=== PATIENT | female | born 1960 | race Asian ===

== ENCOUNTER 2021-05-29 20:33 | Emergency (ER) | payer OTHER, SELFPAY ==
[~2021-05-29] VITALS: Ht 157.5 cm; Wt 63.5 kg
[2021-05-29 20:38] VITALS: BP_SYST 140
--- NOTE | 2021-05-29 21:30 | NUR ---
PT [facility]IA [facility] FOR COMPLAINTS OF ALOC. PT IS A DIABETIC AND SHE WAS FOUND BY FAMILY UNRESPONSIVE ON THE FLOOR. UPON ARRIVAL OF EMS, BG WAS 32. PT WAS GIVEN D10 AND SHE PERKED UP AGAIN AND A RECHECK SHOWED A BG OF 335 PER MEDICS. PT IS A&OX4 NOW AND ACTING APPROPRIATLY. SHE HAS -PAIN. SHE STATED THAT SHE MISSED A MEAL AND TOOK ALL HER REGULAR MEDS BEFORE THE INCIDENT
[2021-05-29] MEDS ORDERED: D5/0.45 NS 1,000 ML IV ONE (21:45)
--- NOTE | 2021-05-29 22:00 | NUR ---
LAB AT BEDSIDE.
[2021-05-29 22:30] LABS: BASOPHILS % (AUTO) 0.3 % (0.0-2.0); EOSINOPHILS % (AUTO) 0.1 % (0.0-4.0); HEMATOCRIT 36.7 % (36-48); LYMPHOCYTES # (AUTO) 1.4 K/uL (1.0-5.5); LYMPHOCYTES % (AUTO) 12.2 % (20.5-51.5); MEAN CORPUSCULAR HEMOGLOBIN 29 pg (27-31); MEAN CORPUSCULAR HGB CONC 33 % (32-36); MEAN CORPUSCULAR VOLUME 88 fL (79.0-98.0); MONOCYTES # (AUTO) 0.6 K/uL (0.0-1.0); MONOCYTES % (AUTO) 5.4 % (1.7-9.3); NEUTROPHILS # (AUTO) 9.2 K/uL (1.8-7.7); PLATELET COUNT (AUTO) 224 K/uL (130-430); RED BLOOD CELL COUNT(AUTO) 4.16 MIL/uL (4.2-6.2); RED CELL DISTRIBUTION WIDTH 13.2 % (9.0-15.0); WHITE BLOOD COUNT (AUTO) 11.3 K/uL (4.8-10.8)
--- NOTE | 2021-05-29 22:31 | NUR ---
PT IS RESTING IN BED COMFORTABLY VSS
[2021-05-29 23:11] LABS: CALCIUM 8.8 mg/dL (8.4-11.0); CREATININE 1.06 mg/dL (0.55-1.30); POTASSIUM 3.9 mmol/L (3.5-5.1)
[2021-05-29] MEDS ORDERED: cloNIDine HCL 0.1 MG TABLET PO ONE (23:15)
[2021-05-29 23:17] LABS: ALBUMIN 3.5 g/dL (3.4-4.8); TOTAL BILIRUBIN 0.5 mg/dL (0.0-1.0)
[2021-05-29 23:19] LABS: PROTHROMBIN TIME 10.7 SECS (9.5-12.5)
--- NOTE | 2021-05-29 23:29 | NUR ---
pt has elevated bp at 190/84. Dr. PACHECO AWARE. ORDERED CLONOPINE TO LOWER BP
--- NOTE | 2021-05-30 00:20 | NUR ---
PTs BP DECREASED TO 140s, WILL CONTINUE MONITORING
--- NOTE | 2021-05-30 01:30 | NUR ---
PT SLEEPING COMFORTABLY IN BED
--- NOTE | 2021-05-30 04:20 | NUR ---
PT GIVEN APPLE JUICE PER THE REQUEST OF DR PACHECO
--- NOTE | 2021-05-30 04:30 | NUR ---
BG IS 128
--- NOTE | 2021-05-30 04:52 | NUR ---
PT WILL BE TRANSFERED TO [facility]. NO UPDATES OF YET
--- NOTE | 2021-05-30 06:15 | NUR ---
Patient to be transferred to [facility] ER.Is being transferred due to higher level of care. Receiving facility has accepting physician and available space. ER physician has signed transfer form. Patient or responsible democrat has agreed to transfer and signed form. Patient belongings inventoried and will be sent with patient. Copy of nursing notes, lab reports, EKG, Physicians Orders and X-rays to be sent with patient. Report called to AMP at receiving facility. Receiving physician is DR. JOEL. [facility] service has been called for transfer. ETA is 15.
[2021-05-30 07:01] VITALS: BP_SYST 156
== END 2021-05-30 07:01 | disposition short-term general hospital (02) ==
LOC: SED 20:33
DX: R41.82 Altered mental status, unspecified (principal); E11.649 Type 2 diabetes mellitus with hypoglycemia without coma; R94.31 Abnormal electrocardiogram [ECG] [EKG]; Z20.822 Contact with and (suspected) exposure to COVID-19
CPT/HCPCS: 36415; 71045; 80053; 82962; 83605; 84484; 85025; 85610; 85730; 87040; 87426; 93005; 96360; 96361; 99285; J7030

== ENCOUNTER 2021-09-20 15:25 | Emergency (ER) | payer OTHER, SELFPAY ==
[~2021-09-20] VITALS: Ht 157.5 cm; Wt 45.4 kg
[2021-09-20 15:25] VITALS: BP_SYST 164; BP_SYST 201
--- NOTE | 2021-09-20 15:25 | NUR ---
BROUGHT IN BY [facility], PLACED IN HALLWAY BED. AWAITING NURSE ASSIGNMENT
--- NOTE | 2021-09-20 16:16 | NUR ---
SPOKE WITH DAUGHTER DRU PADRON AT [phone].
--- NOTE | 2021-09-20 16:31 | NUR ---
PT GIVEN FOOD TO EAT
--- NOTE | 2021-09-20 17:47 | NUR ---
61 years old female biba from home with hypoglycemia, D50 and food given tolerated well, will continue to monitor.
--- NOTE | 2021-09-20 18:34 | NUR ---
patient awake denies pain, non compliant with home medications.
--- NOTE | 2021-09-20 19:09 | NUR ---
report endorsed to nurse villareal all questions answered.
--- NOTE | 2021-09-20 19:11 | NUR ---
RECEIVED REPORT FROM BILLIE MCKINNON
--- NOTE | 2021-09-20 19:31 | NUR ---
CURRENTLY BS 239, PEES AWARE. PT DENIES ANY OTHER PROBLEMS. A/O X4 . ON BEDSIDE MONITOR.
--- NOTE | 2021-09-20 20:00 | NUR ---
SPOKE TO PT'S DAUGHTER DRU, ADVISED SHE IS DISCHARGED AND WILL BE WAITING FOR HER IN THE WAITING ROOM. DRU IS COMING TO [facility] TO PICK HER MOM UP
[2021-09-20 20:06] VITALS: BP_SYST 163
--- NOTE | 2021-09-20 20:07 | NUR ---
Patient given written and verbal discharge instructions and verbalizes understanding. ER MD discussed with patient the results and treatment provided. Patient in stable condition. ID arm band removed. IV catheter removed intact and dressing applied, no active bleeding. Patient educated on pain management and to follow up with PMD. Pain Scale 0. Opportunity for questions provided and answered. Medication side effect fact sheet provided.
== END 2021-09-20 20:06 | disposition home or self-care (01) ==
LOC: SED 15:25
DX: E11.649 Type 2 diabetes mellitus with hypoglycemia without coma (principal); I10 Essential (primary) hypertension
CPT/HCPCS: 82962; 99285

== ENCOUNTER 2021-12-22 08:37 | Inpatient (IN) | payer OTHER ==
[~2021-12-22] VITALS: Ht 162.6 cm; Wt 59.0 kg
[2021-12-22 08:42] VITALS: BP_SYST 211
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
--- NOTE | 2021-12-22 08:50 | NUR ---
DR Bin [address] AT BEDSIDE EXAINING PT.
[2021-12-22] MEDS ORDERED: hydrALAZINE HCL 20 MG/ML VIAL ONE (08:59)
[2021-12-22] MEDS ORDERED: ONDANSETRON HCL 4 MG/2 ML VIAL IVP ONE (09:00)
[2021-12-22] MEDS ORDERED: MORPHINE 4 MG INJ. 4 MG/ML VIAL IVP ONE (09:00)
[2021-12-22] MEDS ORDERED: NITROGLYCERIN LINGUAL 400 mCg/SPRAY ONE (09:02)
--- NOTE | 2021-12-22 09:15 | NUR ---
ASSISTED PT TO THE BATHROOM, PROVIDED A SPECIMEN CUP, URINE SAMPLE TAKEN AND SENT TO LAB FOR TEST.
--- NOTE | 2021-12-22 09:21 | NUR ---
# 20 gauge angiocath placed to right a/c . Use of aseptic technique. Opsite placed over site. Blood return noted. Flushed with 10 cc of normal saline. No evidence of infiltration noted. Patient tolerated well.
--- NOTE | 2021-12-22 09:25 | NUR ---
surveillance officer at bedside taking down notes.
--- NOTE | 2021-12-22 09:28 | NUR ---
TRANSPORTED TO CT SCAN DEPT.
[2021-12-22] MEDS ORDERED: NITROGLYCERIN LINGUAL 400 mCg/SPRAY TL ONE (09:30)
[2021-12-22] MEDS ORDERED: hydrALAZINE HCL 20 MG/ML VIAL IVP ONE (09:30)
--- NOTE | 2021-12-22 09:40 | NUR ---
BROUGHT PT BACK TO E.R. 3.
[2021-12-22 10:05] LABS: BASOPHILS % (AUTO) 0.7 % (0.0-2.0); EOSINOPHILS # (AUTO) 0.1 K/uL (0.0-0.4); EOSINOPHILS % (AUTO) 1.5 % (0.0-4.0); HEMATOCRIT 37.1 % (36-48); HEMOGLOBIN 12.1 g/dL (12.0-16.0); LYMPHOCYTES % (AUTO) 17.7 % (20.5-51.5); MEAN CORPUSCULAR HEMOGLOBIN 29 pg (27-31); MEAN CORPUSCULAR HGB CONC 33 % (32-36); MEAN CORPUSCULAR VOLUME 87 fL (79.0-98.0); MONOCYTES # (AUTO) 0.3 K/uL (0.0-1.0); MONOCYTES % (AUTO) 5.6 % (1.7-9.3); NEUTROPHILS # (AUTO) 4.2 K/uL (1.8-7.7); NEUTROPHILS % (AUTO) 74.5 % (40.0-70.0); PLATELET COUNT (AUTO) 270 K/uL (130-430); RED BLOOD CELL COUNT(AUTO) 4.24 MIL/uL (4.2-6.2); RED CELL DISTRIBUTION WIDTH 13.2 % (9.0-15.0); WHITE BLOOD COUNT (AUTO) 5.6 K/uL (4.8-10.8)
[2021-12-22 10:16] LABS: ANION GAP 9 (5-15); CALCIUM 9.4 mg/dL (8.4-11.0); CHLORIDE 102 mmol/L (98-107); CREATININE 1.57 mg/dL (0.55-1.30); GLUCOSE 170 mg/dL (70-99); POTASSIUM 4.5 mmol/L (3.5-5.1); SODIUM SERUM 137 mmol/L (136-145); UREA NITROGEN, BLOOD 42 mg/dL (8-21)
[2021-12-22 10:20] LABS: INR 0.9 (0.8-1.2); PROTHROMBIN TIME 9.8 SECS (9.5-12.5)
[2021-12-22 10:24] LABS: ALANINE AMINOTRANSFERASE 35 U/L (12-78); ALBUMIN 3.8 g/dL (3.4-4.8); ASPARTATE AMINOTRANSFERASE 30 U/L (10-37); TOTAL BILIRUBIN 0.1 mg/dL (0.0-1.0)
[2021-12-22 10:40] LABS: ACETAMINOPHEN < 1 ug/mL (1-30); ALCOHOL, BLOOD < 3 mg/dL (<10); GFR AFRICAN AMERICAN 43 mL/min (>90)
[2021-12-22] MEDS ORDERED: NITROGLYCERIN 1 INCH (GM) OINT. TP ONE (10:45)
[2021-12-22] MEDS ORDERED: ASPIRIN 325 MG TABLET (ECOTRIN) PO ONE (10:45)
[2021-12-22 10:46] LABS: BARBITURATE, URINE NEGATIVE (NEG <=200); BENZODIAZEPINE, URINE NEGATIVE (NEG <=150); CANNABINOID, URINE NEGATIVE (NEG <=50); COCAINE, URINE NEGATIVE (NEG <=150); METHAMPHETAMINES SCREEN,URINE NEGATIVE (NEG <=500); OPIATE, URINE NEGATIVE (NEG <=100); PHENCYCLIDINE SCREEN,URINE NEGATIVE (NEG <=25); UR TRICYCLIC ANTIDEPRESSANTS NEGATIVE (NEG <=300); URINE AMPHETAMINE NEGATIVE (NEG <=500); URINE METHADONE NEGATIVE (NEG <=200); URINE OXYCODONE SCREEN NEGATIVE (NEG <=100); URINE PROPOXYPHENE SCREEN NEGATIVE (NEG <=300)
[2021-12-22] MEDS ORDERED: ENOXAPARIN SODIUM 60 MG/0.6 ML SYRINGE SUBCUT ONE (13:15)
--- NOTE | 2021-12-22 13:39 | NUR ---
Admit bed requested Patient will be admitted to care of . Admitted to tele unit. Diagnosis hypertensive urgency, syncope Inpatient (Yes or No) yes Observation (Yes or No) no Orientation concerns or request close to nursing station (Yes or No) no Covid Status pending On vent or bipap no Isolation requirements no Needs a sitter no From Home (Yes or if No enter name of facility) home Requires Dialysis (Yes or No) no Med Rec Completed (Yes of No) no
[2021-12-22 16:30] VITALS: BP_SYST 164
--- NOTE | 2021-12-22 16:30 | NUR ---
PT RECEIVED FROM E.RFarrukh AAOX4. TELE PLACED AND READING NSR. PT BEING TREATED FOR HTN SBP 164. WILL REQUEST ORDER FOR HTN MEDCATION. RESP E/U. LUNG SOUNDS CTA. ON R/A. NO COUGH OR SOB. ABDOMEN SOFT, NONTENDER, NONDISTENDED. BOWEL SOUNDS ACTIVE X4 QUADS. DENIES N/V/D/C. IV CATH TO RAC 20 S/L. SITE WNL. SHELBY PAIN, H/A AND DIZZINESS. VOID FREELY. PT ORIENTED TO ROOM AND CALL LIGHT.
--- NOTE | 2021-12-22 16:30 | NUR ---
TRANSPORTED VIA GURNEY TO ROOM 129-A, REPORT GIVEN TO INO RICH.
[2021-12-22 16:34] LABS: BILIRUBIN,URINE NEGATIVE (NEGATIVE); BLOOD, URINE NEGATIVE (NEGATIVE); CLARITY/URINE CLEAR (CLEAR); COLOR,URINE STRAW (YELLOW); GLUCOSE,URINE TRACE (NEGATIVE); KETONES,URINE NEGATIVE (NEGATIVE); LEUKOCYTE ESTERASE ,URINE NEGATIVE (NEGATIVE); NITRITE, URINE NEGATIVE (NEGATIVE); PH,URINE 6.5 (5.0-8.0); PROTEIN URINE 2+ (NEGATIVE); UROBILINOGEN,URINE 0.2 (0.2-1.0)
[2021-12-22 16:35] LABS: BACTERIA,URINE None Seen /HPF (None Seen); MUCUS,URINE None Seen /LPF (None Seen); RBC,URINE NONE SEEN /HPF (0-3); WBC,URINE 0-3 /HPF (0-3)
--- NOTE | 2021-12-22 16:35 | NUR ---
CONSULTATION PAGED/CALLED Reason for Consultation: [] HYPERTENSION Person Who was Notified: [] FAIZAN Consulting Physician: [] DR WADDELL Terrazzo Installer Specialty: [] CARDIO Ordering Physician: [] DR REY
--- NOTE | 2021-12-22 16:39 | NUR ---
CONSULTATION PAGED/CALLED Reason for Consultation: [] SYNCOPE Person Who was Notified: [] DR DIANA Consulting Physician: [] DR David DIANA Jointer Operator Specialty: [] NEUROLOGY Ordering Physician: [] DR REY
[2021-12-22] MEDS ORDERED: LIP80 PO (18:20)
[2021-12-22] MEDS ORDERED: FERR-69 PO (18:20)
[2021-12-22] MEDS ORDERED: DOCU-144 PO (18:20)
[2021-12-22] MEDS ORDERED: METO25TA6 PO (18:20)
[2021-12-22] MEDS ORDERED: METF-518 PO (18:20)
[2021-12-22] MEDS ORDERED: LOSA50TA3 PO (18:20)
--- NOTE | 2021-12-22 18:29 | NUR ---
DR. REY MADE AWARE PT'S HOME MEDS HAVE BEEN RECONCILED, ALSO PT HAS SBP 164 AND NO S/P MEDS FOR COVERAGE. RECEIVED ORDER FOR CLONIDINE 0.1 MG PO Q 6 HOURS PRN FOR SBP <160mmHG. ORDER CARRIED OUT. PT MADE AWARE.
[2021-12-22] MEDS ORDERED: cloNIDine HCL 0.1 MG TABLET PO PRN (18:30)
--- NOTE | 2021-12-22 18:42 | NUR ---
CATPRES 0.1MG PO PRN GIVEN FOR SPB 164. PT DENIES H/A AND DIZZINESS. DENIES PAIN. CALL LIGHT WITHIN REACH.
[2021-12-22 19:33] VITALS: BP_SYST 164
[2021-12-22 19:50] VITALS: BP_SYST 128
--- NOTE | 2021-12-22 19:50 | NUR ---
ENDORSED CARE TO INO DONNELLY. ALL QUESTIONS AND CONCERNS ADDRESSED.
--- NOTE | 2021-12-22 20:00 | NUR ---
Report received from Sophie Jacinto. Pt is awake alert and oriented x4, vs stable, denies any pain, NSR on tele, no acute distress noted. Bed to lowest position, side rails up x2, bed is locked and call light within reach. Oriented pt to room and unit routine. Assuming care for pt.
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
[2021-12-22 23:43] VITALS: BP_SYST 109
--- NOTE | 2021-12-23 | NUR ---
BS 133
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
--- NOTE | 2021-12-23 05:45 | NUR ---
bs 151
--- NOTE | 2021-12-23 06:38 | NUR ---
Pt stable, no acute distress. Daughter at bedside.
--- NOTE | 2021-12-23 07:30 | NUR ---
RECEIVED PT FROM INO DONNELLY. ASSUMED ALL CARE. B/P WNL. DENIES H/A AND DIZZINESS, DENIES PAIN. RESP E/U. NO DISTRESS NOTED. IV CATH TO BO FLUSHED, PATENT, WNL, CDI. CALL LIGHT WITHIN REACH. DAUGHTER AT BEDSIDE.
[2021-12-23 08:00] VITALS: BP_SYST 120
--- NOTE | 2021-12-23 09:26 | NUR ---
Nutrition Note RD was completing nutrition screening process this morning and noted BMI: 10 kg/m2 -- unsure of reliability. RD viewed pt's wt Hx during this admission and previous ER visits x2 (09/20/21 and 05/29/21). Based on EMR review, triage nursing assessment 12/22/21 0842, pt's stated wt was 130#/58.9 kg. Most recent documented wt of 58#/26.3 kg/m2 from MST/ICU nursing assessment 12/22/21 [address] adjusted wt to 130#/58.9 kg/m2 to better reflect pt's CBW.
[2021-12-23] MEDS: METOPROLOL TARTRATE 25 MG TABLET PO SCH ×2 (09:45→21:13)
[2021-12-23] MEDS: LOSARTAN POTASSIUM 50 MG TABLET (COZAAR) PO SCH ×2 (09:46→21:14)
--- NOTE | 2021-12-23 10:20 | NUR ---
SCHEDULED MEDS GIVEN AND TOLERATED WELL. PT DENIES H/A AND DIZZINESS, DENIES PAIN. DAUGHTER AT BEDSIDE. CALL LIGHT WITHIN REACH.
[2021-12-23 12:00] VITALS: BP_SYST 133
[2021-12-23] MEDS ORDERED: HYDROcodone/ACETAMIN 5-325 MG TAB (NORCO/ VICODIN) PO PRN (13:00)
[2021-12-23] MEDS ORDERED: NALOXONE HCL 0.4 MG/ML AMP (NARCAN) IVP PRN ×2 (13:00)
[2021-12-23] MEDS ORDERED: ACETAMINOPHEN 325 MG TABLET PO PRN (13:00)
[2021-12-23] MEDS ORDERED: ONDANSETRON HCL 4 MG/2 ML VIAL IVP PRN (13:00)
[2021-12-23] MEDS ORDERED: LORazepam 2 MG/ML VIAL IVP PRN (13:00)
[2021-12-23] MEDS ORDERED: HYDROcodone/ACETAMIN 10-325 MG TAB PO PRN (13:00)
[2021-12-23] MEDS: NORMAL SALINE 5 ML DISP.SYRIN IVF SCH ×2 (13:38→21:14)
[2021-12-23] MEDS ORDERED: NORMAL SALINE 5 ML DISP.SYRIN IVF SCH (14:00)
[2021-12-23 16:30] VITALS: BP_SYST 143
--- NOTE | 2021-12-23 16:41 | NUR ---
CM: faxed fs, er notes to [facility] de[facility].
[2021-12-23] MEDS: metFORMIN HCL 500 MG TABLET PO SCH (17:23)
[2021-12-23] MEDS: INSULIN REGULAR, HUMAN 100 UNITS/ML, 10 ML VIAL (humuLIN R) SUBCUT PRN (17:29)
--- NOTE | 2021-12-23 17:37 | NUR ---
BS 161, 2 UNITS REG INSULIN GIVEN SQ TO TANA. SCHEDULED MED GIVEN. DENIES H/A AND DIZZINESS. CALL LIGHT WITHIN REACH.
--- NOTE | 2021-12-23 19:40 | NUR ---
ENDORSED ALL CARE TO JOZEF ALVARADO. ALL QUESTIONS AND CONCERNS ADDRESSED.
[2021-12-23 20:00] VITALS: BP_SYST 154
[2021-12-23] MEDS: ATORVASTATIN 20 MG TABLET PO SCH (21:13)
[2021-12-24] VITALS (9 sets, daily range): BP systolic 138–212
[2021-12-24] MEDS: NORMAL SALINE 5 ML DISP.SYRIN IVF SCH ×3 (06:25→23:10)
[2021-12-24 06:30] LABS: BASOPHILS % (AUTO) 0.8 % (0.0-2.0); EOSINOPHILS # (AUTO) 0.1 K/uL (0.0-0.4); HEMATOCRIT 30.2 % (36-48); LYMPHOCYTES # (AUTO) 1.8 K/uL (1.0-5.5); MEAN CORPUSCULAR HEMOGLOBIN 29 pg (27-31); MEAN CORPUSCULAR HGB CONC 33 % (32-36); MEAN CORPUSCULAR VOLUME 87 fL (79.0-98.0); MONOCYTES # (AUTO) 0.6 K/uL (0.0-1.0); NEUTROPHILS # (AUTO) 3.4 K/uL (1.8-7.7); NEUTROPHILS % (AUTO) 57.2 % (40.0-70.0); PLATELET COUNT (AUTO) 238 K/uL (130-430); RED BLOOD CELL COUNT(AUTO) 3.46 MIL/uL (4.2-6.2); RED CELL DISTRIBUTION WIDTH 12.9 % (9.0-15.0)
--- NOTE | 2021-12-24 07:05 | NUR ---
CLOSING NOTE PT IS SLEEPING IN BED, DAUGHTER REMAINED BEDSIDE ALL NIGHT. NO APPARENT DISTRESS NOTED AT THIS TIME. BED IS IN LOWEST POSITION WITH SAFETY PRECAUTIONS IN PLACE. CALL LIGHT IS WITHIN REACH
[2021-12-24 07:58] LABS: CALCIUM 8.1 mg/dL (8.4-11.0); CREATININE 1.88 mg/dL (0.55-1.30); PHOSPHORUS 4.5 mg/dL (2.7-4.5); POTASSIUM 4.3 mmol/L (3.5-5.1)
[2021-12-24] MEDS: DOCUSATE SODIUM 100 MG CAPSULE PO SCH (08:07)
[2021-12-24] MEDS: LOSARTAN POTASSIUM 50 MG TABLET (COZAAR) PO SCH (08:09)
[2021-12-24] MEDS: METOPROLOL TARTRATE 25 MG TABLET PO SCH ×2 (08:10→20:41)
[2021-12-24] MEDS ORDERED: FERROUS SULFATE 325 MG TABLET.DR PO SCH (09:00)
[2021-12-24] MEDS ORDERED: LOSARTAN POTASSIUM 50 MG TABLET (COZAAR) PO ONE (10:15)
--- NOTE | 2021-12-24 10:34 | NUR ---
PT GIVEN ANOTHER DOSE OF [address] WADDELL. BP WAS 176/68.
[2021-12-24] MEDS ORDERED: LOSA50TA3 PO (11:09)
[2021-12-24] MEDS: INSULIN REGULAR, HUMAN 100 UNITS/ML, 10 ML VIAL (humuLIN R) SUBCUT PRN (11:51)
--- NOTE | 2021-12-24 12:04 | NUR ---
DR MUNGUIA INFORMED OF C ORDER IF CLEARED BY NEURO. SAID HE WILL LOOK AT PT'S RECORDS AND WILL GET BACK TO ME.
[2021-12-24 12:38] LABS: FREE T4 (FREE THYROXINE) 1.5 ng/dl (0.8-1.5); THYROID STIMULATING HORMONE 0.25 uIu/mL (0.36-3.74)
--- NOTE | 2021-12-24 14:00 | NUR ---
DR MUNGUIA ( NEURO ) CLEARED PT TO GO HOME. PT TO SEE DR MUNGUIA IN ONE WEEK AFTER SEEING HER PCP.
--- NOTE | 2021-12-24 14:38 | NUR ---
PT'S BP CHECKED PRIOR TO DC HOME. BP WAS ELEVATED AT 193/102, 197/90 AND 197/89. HR IS ON THE LOW 70S. Addendum: 12/24/21 at 1440 by Hipolito Andersen RN PAGED DR REY TO INFORM MD OF PT'S BP.
--- NOTE | 2021-12-24 14:53 | NUR ---
DR REY MADE AWARE OF THE CURRENT BP OF PT WHICH ARE ELEVATED. NEW ORDERS RECEIVED AND CARRIED OUT.
[2021-12-24] MEDS ORDERED: METOPROLOL TARTRATE 25 MG TABLET PO ONE (15:00)
--- NOTE | 2021-12-24 16:44 | NUR ---
PT BP STILL ELEVATED, INFORMED DR WADDELL, NEW ORDERS RECEIVED AND CARRIED OUT. WILL KEEP PATIENT ONE MORE DAY PER MD.
[2021-12-24] MEDS ORDERED: hydrALAZINE HCL 25 MG TABLET PO ONE (17:00)
[2021-12-24] MEDS: metFORMIN HCL 500 MG TABLET PO SCH (17:07)
--- NOTE | 2021-12-24 18:46 | NUR ---
PT'S BP NOW AT 158/95. WILL CONT TO MONITOR. WILL ENDORSE TO NIGHT NURSE.
--- NOTE | 2021-12-24 19:30 | NUR ---
OPENING NOTE PT IS SITTING UP IN BED. NO APPARENT DISTRESS NOTED AT THIS TIME. BED IS IN LOWEST POSITION WITH SAFETY PRECAUTIONS IN PLACE. CALL LIGHT IS WITHIN REACH
[2021-12-24] MEDS: hydrALAZINE HCL 25 MG TABLET PO SCH (20:42)
[2021-12-24] MEDS: ATORVASTATIN 20 MG TABLET PO SCH (20:42)
--- NOTE | 2021-12-24 20:54 | NUR ---
PAGED PAGED DOCTOR WADDELL
--- NOTE | 2021-12-24 20:57 | NUR ---
SPOKE WITH PTS BP ELEVATED AT 206/107. PAGED DR WADDELL. [id number] MG HYDRALAZINE IV PUSH ONE TIME. READ BACK ORDER, CONFIRMED. WILL CONTINUE TO MONITOR PTS BP
[2021-12-24] MEDS ORDERED: hydrALAZINE HCL 20 MG/ML VIAL IVP ONE (21:00)
[2021-12-25] VITALS: BP_SYST 113
[2021-12-25] MEDS: NORMAL SALINE 5 ML DISP.SYRIN IVF SCH (05:34)
--- NOTE | 2021-12-25 06:56 | NUR ---
CLOSING NOTE PT IS SITING UP IN BED WITH DAUGHTER BEDSIDE. NO APPARENT DISTRESS NOTED AT THIS TIME. BED IS IN LOWEST POSITION WITH SAFETY PRECAUTIONS IN PLACE. CALL LIGHT IS WITHIN REACH.
[2021-12-25 08:51] LABS: BASOPHILS # (AUTO) 0.1 K/uL (0.0-0.2); BASOPHILS % (AUTO) 0.7 % (0.0-2.0); EOSINOPHILS # (AUTO) 0.2 K/uL (0.0-0.4); EOSINOPHILS % (AUTO) 2.3 % (0.0-4.0); HEMATOCRIT 34.2 % (36-48); HEMOGLOBIN 11.5 g/dL (12.0-16.0); LYMPHOCYTES % (AUTO) 26.4 % (20.5-51.5); MEAN CORPUSCULAR HEMOGLOBIN 29 pg (27-31); MEAN CORPUSCULAR HGB CONC 34 % (32-36); MEAN CORPUSCULAR VOLUME 87 fL (79.0-98.0); MONOCYTES # (AUTO) 0.6 K/uL (0.0-1.0); MONOCYTES % (AUTO) 7.4 % (1.7-9.3); NEUTROPHILS # (AUTO) 4.7 K/uL (1.8-7.7); NEUTROPHILS % (AUTO) 63.2 % (40.0-70.0); PLATELET COUNT (AUTO) 274 K/uL (130-430); RED BLOOD CELL COUNT(AUTO) 3.93 MIL/uL (4.2-6.2); RED CELL DISTRIBUTION WIDTH 12.9 % (9.0-15.0); WHITE BLOOD COUNT (AUTO) 7.5 K/uL (4.8-10.8)
[2021-12-25] MEDS ORDERED: LOSARTAN POTASSIUM 50 MG TABLET (COZAAR) PO SCH (09:00)
[2021-12-25 09:48] LABS: ALBUMIN 3.5 g/dL (3.4-4.8); CALCIUM 8.7 mg/dL (8.4-11.0); CREATININE 1.68 mg/dL (0.55-1.30); PHOSPHORUS 5.3 mg/dL (2.7-4.5); POTASSIUM 4.3 mmol/L (3.5-5.1); TOTAL BILIRUBIN 0.7 mg/dL (0.0-1.0)
[2021-12-25] MEDS ORDERED: PIOG30TA70 PO (09:51)
[2021-12-25] MEDS ORDERED: HYDR-4038 PO (09:51)
[2021-12-25] MEDS: METOPROLOL TARTRATE 25 MG TABLET PO SCH (10:16)
[2021-12-25] MEDS: hydrALAZINE HCL 25 MG TABLET PO SCH (10:17)
[2021-12-25] MEDS: DOCUSATE SODIUM 100 MG CAPSULE PO SCH (10:18)
--- NOTE | 2021-12-25 10:50 | NUR ---
INFORMED SLOPE RUNNER FLYNN THAT THE PATIENT IS OFF THE TELE MONITOR
--- NOTE | 2021-12-25 11:00 | NUR ---
Welder/Installer CHARLES Bach responded to a request for social work consult for "resources needed for financial hardship and disability". CHARLES Bach met with patient at bedside. Patient was sitting up in bed alert and orientated x4. Her 23 year old daughter was also present at bedside. CHARLES Bach completed introductions and reason for referral. Patient was open to contact. Patient shared a need for resources related to her 17 year old daughter who has been diagnosed with Autism. She also requested community resources for low income housing. The adult daughter also inquired into resources available for her and stated she was ADHD and "other things with her mind". The adult daughter's responses were observed to not be congruent with her age. POLICY VALUE CALCULATOR encouraged both patient and daughter to explore available resources at her college as well as utilizing [facility] and the community resource packet. POLICY VALUE CALCULATOR provided patient with the following resources -Community resources packet - [place] contact information - [employer] application info POLICY VALUE CALCULATOR will continue to be available as needed.
[2021-12-25 11:48] VITALS: BP_SYST 132
== END 2021-12-25 12:20 | disposition home or self-care (01) | DRG 305 ==
LOC: SED 08:37 → STU 13:37
PROVIDERS: ADMIT Preventive Medicine Preventive Medicine/Occupational Environmental Medicine; ATTEND Preventive Medicine Preventive Medicine/Occupational Environmental Medicine
PROC: 4A10X4Z Monitoring of Central Nervous Electrical Activity, External Approach (ICD-10-PCS; principal; 2021-12-24)
DX: I16.0 Hypertensive urgency (principal); N18.4 Chronic kidney disease, stage 4 (severe); E11.65 Type 2 diabetes mellitus with hyperglycemia; E78.00 Pure hypercholesterolemia, unspecified; E78.5 Hyperlipidemia, unspecified; E11.21 Type 2 diabetes mellitus with diabetic nephropathy; I12.9 Hypertensive chronic kidney disease with stage 1 through stage 4 chronic kidney disease, or unspecified chronic kidney disease; E11.22 Type 2 diabetes mellitus with diabetic chronic kidney disease; Z20.822 Contact with and (suspected) exposure to COVID-19; G44.309 Post-traumatic headache, unspecified, not intractable; Z79.84 Long term (current) use of oral hypoglycemic drugs; Z79.899 Other long term (current) drug therapy; Z83.3 Family history of diabetes mellitus
CPT/HCPCS: 36415; 70450-TC; 71045; 72125-TC; 76376; 80048; 80053; 80307; 81000; 82962; 83605; 83735; 84100; 84439; 84443; 84484; 85025; 85610-TC; 85730-TC; 93005; 93306; 93880; 95816; 96372; 96374; 96375; 99285; G0378; G0480; G0481; G0482; J0360; J1650; J1815; J2405

== ENCOUNTER 2022-01-08 13:57 | Emergency (ER) | payer OTHER ==
[~2022-01-08] VITALS: Ht 157.5 cm; Wt 59.4 kg
[~2022-01-08 13:57] MED LIST: DOCU-144 PO; FERR-69 PO; HYDR-4038 PO; LIP80 PO; LOSA50TA3 PO; METO25TA6 PO; PIOG30TA70 PO
[2022-01-08 14:10] VITALS: BP_SYST 148
--- NOTE | 2022-01-08 14:10 | NUR ---
Pt to bed 1 for evaluation. Report given to INO Posada who will assume care.
--- NOTE | 2022-01-08 14:15 | NUR ---
EKG performed at by Zoya Dodd. Physician given copy of EKG for review.
--- NOTE | 2022-01-08 14:17 | NUR ---
ER at bedside examining patient.
--- NOTE | 2022-01-08 14:25 | NUR ---
Pt to bed #1 coming from home after walking to the [employer] store [employer]. Pt states while on a walk she flet sob and blurred vision then she had a syncopal episode. States her that was with her caught her. Pt is A&Ox4. Skin intact. NKA. Has hx of HTN and DM. Accucheck done and results were 96. Connected pt to personnel monitor and VSS. No chest pain and no n/v. All neuro checks within normal limits. Negative stroke symptoms present. Bed in lowest position.
--- NOTE | 2022-01-08 14:30 | NUR ---
Patient transported to radiology via gurney, accompanied by Cash Office Worker.
--- NOTE | 2022-01-08 14:42 | NUR ---
Returned from radiology, back to [facility].
--- NOTE | 2022-01-08 15:10 | NUR ---
All cares assumed (INO Porter)
--- NOTE | 2022-01-08 15:15 | NUR ---
Patient calm and cooperative in no acute distress and or discomfort. Returned from CT scan, placed back onto monitor. Vitals stable.
[2022-01-08 15:18] LABS: BASOPHILS % (AUTO) 0.5 % (0.0-2.0); EOSINOPHILS # (AUTO) 0.1 K/uL (0.0-0.4); EOSINOPHILS % (AUTO) 1.1 % (0.0-4.0); HEMATOCRIT 30.7 % (36-48); HEMOGLOBIN 10.1 g/dL (12.0-16.0); LYMPHOCYTES # (AUTO) 1.4 K/uL (1.0-5.5); LYMPHOCYTES % (AUTO) 16.6 % (20.5-51.5); MEAN CORPUSCULAR HEMOGLOBIN 29 pg (27-31); MEAN CORPUSCULAR HGB CONC 33 % (32-36); MEAN CORPUSCULAR VOLUME 87 fL (79.0-98.0); MONOCYTES # (AUTO) 0.4 K/uL (0.0-1.0); MONOCYTES % (AUTO) 4.9 % (1.7-9.3); NEUTROPHILS # (AUTO) 6.7 K/uL (1.8-7.7); NEUTROPHILS % (AUTO) 76.9 % (40.0-70.0); PLATELET COUNT (AUTO) 249 K/uL (130-430); RED BLOOD CELL COUNT(AUTO) 3.52 MIL/uL (4.2-6.2); RED CELL DISTRIBUTION WIDTH 12.9 % (9.0-15.0); WHITE BLOOD COUNT (AUTO) 8.7 K/uL (4.8-10.8)
[2022-01-08 15:46] LABS: ANION GAP 8 (5-15); CALCIUM 8.8 mg/dL (8.4-11.0); CHLORIDE 106 mmol/L (98-107); CREATININE 1.64 mg/dL (0.55-1.30); GFR AFRICAN AMERICAN 41 mL/min (>90); GLUCOSE 96 mg/dL (70-99); POTASSIUM 4.2 mmol/L (3.5-5.1); SODIUM SERUM 137 mmol/L (136-145); UREA NITROGEN, BLOOD 46 mg/dL (8-21)
[2022-01-08 15:54] LABS: TOTAL BILIRUBIN 0.1 mg/dL (0.0-1.0)
[2022-01-08 15:55] LABS: ALANINE AMINOTRANSFERASE 26 U/L (12-78); ALBUMIN 3.4 g/dL (3.4-4.8); ASPARTATE AMINOTRANSFERASE 22 U/L (10-37)
[2022-01-08 15:56] LABS: ACETONE, SERUM NEGATIVE (NEGATIVE)
[2022-01-08 16:17] VITALS: BP_SYST 128
--- NOTE | 2022-01-08 16:17 | NUR ---
Patient given written and verbal discharge instructions and verbalizes understanding. ER MD discussed with patient the results and treatment provided. Patient in stable condition. ID arm band removed. IV catheter removed intact and dressing applied, no active bleeding. Rx of given. Patient educated on pain management and to follow up with PMD. Pain Scale 0/10 Opportunity for questions provided and answered. Medication side effect fact sheet provided.
== END 2022-01-08 16:17 | disposition home or self-care (01) ==
LOC: SED 13:57
DX: R55 Syncope and collapse (principal); E78.5 Hyperlipidemia, unspecified; E11.9 Type 2 diabetes mellitus without complications; I10 Essential (primary) hypertension
CPT/HCPCS: 36415; 70450-TC; 71045; 76376; 80053; 82009; 82962; 84484; 85025; 93005; 99285

== ENCOUNTER 2022-01-31 00:34 | Emergency (ER) | payer OTHER ==
[~2022-01-31] VITALS: Ht 165.1 cm; Wt 68.0 kg
[2022-01-31 00:42] VITALS: BP_SYST 159
[2022-01-31] MEDS ORDERED: ACETAMINOPHEN 500 MG TABLET PO ONE (00:45)
[2022-01-31] MEDS ORDERED: cloNIDine HCL 0.1 MG TABLET PO ONE (00:45)
[2022-01-31 01:08] LABS: BASOPHILS # (AUTO) 0.1 K/uL (0.0-0.2); BASOPHILS % (AUTO) 1.3 % (0.0-2.0); EOSINOPHILS # (AUTO) 0.1 K/uL (0.0-0.4); EOSINOPHILS % (AUTO) 2.4 % (0.0-4.0); HEMATOCRIT 34.3 % (36-48); HEMOGLOBIN 11.3 g/dL (12.0-16.0); LYMPHOCYTES # (AUTO) 1.7 K/uL (1.0-5.5); LYMPHOCYTES % (AUTO) 35.4 % (20.5-51.5); MEAN CORPUSCULAR HEMOGLOBIN 29 pg (27-31); MEAN CORPUSCULAR HGB CONC 33 % (32-36); MEAN CORPUSCULAR VOLUME 87 fL (79.0-98.0); MONOCYTES # (AUTO) 0.4 K/uL (0.0-1.0); MONOCYTES % (AUTO) 7.4 % (1.7-9.3); NEUTROPHILS # (AUTO) 2.6 K/uL (1.8-7.7); NEUTROPHILS % (AUTO) 53.5 % (40.0-70.0); PLATELET COUNT (AUTO) 263 K/uL (130-430); RED BLOOD CELL COUNT(AUTO) 3.95 MIL/uL (4.2-6.2); RED CELL DISTRIBUTION WIDTH 13.4 % (9.0-15.0); WHITE BLOOD COUNT (AUTO) 4.8 K/uL (4.8-10.8)
[2022-01-31 01:15] LABS: ANION GAP 12 (5-15); CALCIUM 8.5 mg/dL (8.4-11.0); CHLORIDE 101 mmol/L (98-107); CREATININE 1.64 mg/dL (0.55-1.30); GLUCOSE 140 mg/dL (70-99); POTASSIUM 3.7 mmol/L (3.5-5.1); SODIUM SERUM 138 mmol/L (136-145); UREA NITROGEN, BLOOD 38 mg/dL (8-21)
[2022-01-31 01:18] LABS: GFR AFRICAN AMERICAN 41 mL/min (>90)
[2022-01-31 01:26] LABS: ALANINE AMINOTRANSFERASE 39 U/L (12-78); ALBUMIN 3.6 g/dL (3.4-4.8); ASPARTATE AMINOTRANSFERASE 32 U/L (10-37); TOTAL BILIRUBIN 0.1 mg/dL (0.0-1.0)
[2022-01-31 03:17] VITALS: BP_SYST 131
== END 2022-01-31 03:03 | disposition home or self-care (01) ==
LOC: SED 00:34
DX: R00.2 Palpitations (principal); E11.9 Type 2 diabetes mellitus without complications; I10 Essential (primary) hypertension
CPT/HCPCS: 36415; 71045; 80053; 83880; 84484; 85025; 93005; 99285